=== PATIENT | male | born 1985 | race Caucasian/White ===

== ENCOUNTER → 2021-01-11 | Outpatient (CLI) | payer OTHER ==
--- NOTE | 2021-01-11 15:04 | P.BASOAP ---
Subjective Progress Note Date: 01/11/21 Principal diagnosis: Morbid obesity Patient known to our service from history of lap band performed in approximately 2005. Patient has not been seen in the bariatric clinic for many years. Patient started off prior to his band with a weight around 420. At his best patient's weight got down to around 210. Currently is at 336. Patient recently over the last 2 years has had gradually worsening reflux. Here today for evaluation. Has been considering conversion to alternate bariatric procedures. Rare episodes of vomiting. Objective - Exam Abdomen: Soft, nontender, nondistended Assessment/Plan (1) Morbid obesity Narrative/Plan: 35-year-old male with history of morbid obesity. Patient with history of previous laparoscopic banding. Now with worsening indigestion and reflux. Options reviewed. Will loosen the patient's band at this time. Will order esophagram next visit. Patient and I discussed options of conversion to both sleeve and bypass versus keeping his band. Patient will continue to consider these options further. The patient's lap band port was palpated. The site was aseptically prepped. The Manzanares needle was advanced into the port. A total of 6 ml of fluid was removed. There was some additional fluid still present in the band. Pressure was held and a sterile dressing was applied. Plan: Date: Initial Weight: Initial BMI: Current Weight: Current BMI: Type of Surgery: Total Volume in Band: Previous Volume: Volume Removed: Volume Added: Band Size:
[2021-01-11 15:59] VITALS: BP 137/86; PULSE 66; TEMP 98.2; BMI 46.8
== END | disposition home or self-care (01) ==
LOC: BARWHC3 14:30
PROVIDERS: ATTEND Surgery
DX: E66.01 Morbid (severe) obesity due to excess calories (principal); Z68.42 Body mass index [BMI] 45.0-49.9, adult
CPT/HCPCS: 99212

== ENCOUNTER → 2021-04-21 | Outpatient (CLI) | payer OTHER ==
[2021-04-21 13:13] VITALS: BP 133/80; PULSE 72; TEMP 98.2; BMI 53.5
--- NOTE | 2021-04-21 13:25 | P.BASOAP ---
Subjective Progress Note Date: 04/21/21 Principal diagnosis: GERD Patient returns after having band emptied last visit. Patient doing well since that time. He has gained 48 pounds. Patient says he has done somewhat better recently however after starting a keto diet. Patient is interested in conversion to gastric bypass. Objective - Vital Signs Vital signs: Vital Signs Temp 98.2 F 04/21/21 12:41 Pulse 72 04/21/21 12:41 Resp BP 133/80 04/21/21 12:41 Pulse Ox Intake & Output 04/20/21 04/21/21 04/21/21 18:59 06:59 18:59 Weight 174.179 kg - Exam Abdomen: Soft, nontender, nondistended Assessment/Plan (1) Morbid obesity Narrative/Plan: 35-year-old male with dysphagia and vomiting with lap band. Today's upper GI shows no evidence of obstruction or prolapse. Options again reviewed. He is interested and conversion to gastric bypass which I believe is the best procedure for him at this point. Will refer to [facility] bariatric team for assessment and care. Plan: Date: 04/21/21 Initial Weight: Initial BMI: Current Weight: 174.179 kg Current BMI: 53.5 Type of Surgery: Total Volume in Band: 2 Previous Volume: Volume Removed: Volume Added: Band Size:
== END | disposition home or self-care (01) ==
LOC: BARWHC3 12:37
PROVIDERS: ATTEND Surgery
DX: E66.01 Morbid (severe) obesity due to excess calories (principal); Z68.43 Body mass index [BMI] 50.0-59.9, adult
CPT/HCPCS: 99211

== ENCOUNTER → 2021-04-21 | Outpatient (CLI) | payer OTHER ==
--- NOTE | 2021-04-21 12:53 | FL ---
SINGLE CONTRAST BARIUM SWALLOW: CLINICAL HISTORY: 35-year-old male R13.10, dysphagia. TECHNIQUE: Single contrast exam performed with thin barium. Total fluoroscopy time: 42 seconds. Total images: 12. FINDINGS: The patient swallowed oral contrast without difficulty or delay. There is satisfactory course and roby iber of the thoracic esophagus. Lap band device is visualized in appropriate position. There is promp t passage of contrast from the esophagus into the proximal stomach. No abnormal distention of the gas tric pouch. A couple episodes of intraesophageal reflux are visualized as the contrast bolus encounte rs the lap band. However, there is subsequent satisfactory passage across the band without any signif icant restriction. IMPRESSION: Lap band appropriately positioned. Gastric pouch normal size. No significant restriction across the l ap-band. A couple episodes of intraesophageal reflux when the contrast bolus initially encounters the lap band.
== END | disposition home or self-care (01) ==
LOC: RADUSWWP 11:50
PROVIDERS: ATTEND Surgery
DX: R13.10 Dysphagia, unspecified (principal)
CPT/HCPCS: 74220